=== PATIENT | female | born 1990 | race Caucasian/White ===

== ENCOUNTER 2016-11-08 10:57 | Emergency (ER) | payer OTHER ==
[~2016-11-08] VITALS: Ht 160 cm; Wt 79.0 kg
[~2016-11-08 10:57] MED LIST: NOCURR
[2016-11-08] MEDS ORDERED: IBUPROFEN 800 MG TABLET PO ONE (11:45)
[2016-11-08 11:56] VITALS: BP 126/77
== END 2016-11-08 12:16 | disposition home or self-care (01) ==
LOC: EMS 11:00
DX: S86.811A Strain of other muscle(s) and tendon(s) at lower leg level, right leg, initial encounter (principal); X58.XXXA Exposure to other specified factors, initial encounter; Y93.89 Activity, other specified; Y92.89 Other specified places as the place of occurrence of the external cause; Y99.8 Other external cause status
CPT/HCPCS: 99282

== ENCOUNTER 2017-04-27 22:11 | Emergency (ER) | payer OTHER ==
[~2017-04-27] VITALS: Ht 160 cm; Wt 75.0 kg
[2017-04-27 22:33] VITALS: BP 122/74
[2017-04-27 23:15] LABS: INFLUENZA TYPE B NEGATIVE FOR TYPE B (NEGATIVE)
== END 2017-04-27 23:58 | disposition left against medical advice (07) ==
LOC: EMS 22:12
DX: R51 Headache (principal); R05 Cough; R09.81 Nasal congestion; Z53.21 Procedure and treatment not carried out due to patient leaving prior to being seen by health care provider
CPT/HCPCS: 87804

== ENCOUNTER 2018-10-27 22:15 | Emergency (ER) | payer OTHER | END 2018-10-27 23:07 | disposition left against medical advice (07) | LOC: EMS 22:17 | DX: M79.603 Pain in arm, unspecified (principal); Z53.21 Procedure and treatment not carried out due to patient leaving prior to being seen by health care provider ==

== ENCOUNTER 2019-04-18 17:17 | Emergency (ER) | payer OTHER ==
[~2019-04-18] VITALS: Ht 160 cm; Wt 86.4 kg
[2019-04-18] MEDS ORDERED: IBUPROFEN 400 MG TABLET PO ONE (19:45)
[2019-04-18 20:45] VITALS: BP 142/71
== END 2019-04-18 21:00 | disposition home or self-care (01) ==
LOC: EMS 17:18
DX: S52.592A Other fractures of lower end of left radius, initial encounter for closed fracture (principal); W01.0XXA Fall on same level from slipping, tripping and stumbling without subsequent striking against object, initial encounter; Y93.89 Activity, other specified; Y92.89 Other specified places as the place of occurrence of the external cause; Y99.8 Other external cause status